=== PATIENT | female | born 1975 | race Caucasian/White ===

== ENCOUNTER → 2018-02-19 09:18 | Outpatient (CLI) | payer OTHER, SELFPAY ==
--- NOTE | 2018-02-19 | DI.MG.S_ITS ---
BILATERAL DIGITAL SCREENING MAMMOGRAM 3D/2D WITH CAD: 02/19/2018 CLINICAL: Routine screening. Family history of breast cancer. Comparison is made to exams dated: 02/06/2017 mammogram and 10/15/2014 mammogram - [facility]. The tissue of both breasts is heterogeneously dense. This may lower the sensitivity of mammography. Current study was also evaluated with a Computer Aided Detection (CAD) system. No significant masses, calcifications, or other findings are seen in either breast. There has been no significant interval change. IMPRESSION: NEGATIVE There is no mammographic evidence of malignancy. A 1 year screening mammogram is recommended. This exam was interpreted at Station ID: [id number]. NOTE: For mammograms, a report in lay terms will be sent to the patient. Approximately 15% of breast malignancies will not be visualized mammographically. In the management of a palpable breast mass, a negative mammogram must not discourage biopsy of a clinically suspicious lesion. Electronically Signed By: Itz wilson/teresita:02/19/2018 11:10:25 letter sent: Normal Exam ACR BI-RADS Category 1: Negative 3341F
== END ==
PROVIDERS: PCP Family Medicine; Visit Provider Family Medicine
DX: Z12.31 Encounter for screening mammogram for malignant neoplasm of breast (principal); Z80.3 Family history of malignant neoplasm of breast
CPT/HCPCS: 77063; 77067

== ENCOUNTER → 2019-03-17 16:16 | Outpatient (CLI) | payer OTHER, SELFPAY ==
--- NOTE | 2019-03-17 | DI.MG.S_ITS ---
BILATERAL DIGITAL SCREENING MAMMOGRAM 3D/2D WITH CAD: 03/17/2019 CLINICAL: Routine screening. Family history of breast cancer. Comparison is made to exams dated: 02/19/2018 mammogram, 02/06/2017 mammogram, and 10/15/2014 mammogram - [facility]. The tissue of both breasts is heterogeneously dense. This may lower the sensitivity of mammography. Current study was also evaluated with a Computer Aided Detection (CAD) system. No significant masses, calcifications, or other findings are seen in either breast. There has been no significant interval change. IMPRESSION: NEGATIVE There is no mammographic evidence of malignancy. A 1 year screening mammogram is recommended. This exam was interpreted at Station ID: [id number]. NOTE: For mammograms, a report in lay terms will be sent to the patient. Approximately 15% of breast malignancies will not be visualized mammographically. In the management of a palpable breast mass, a negative mammogram must not discourage biopsy of a clinically suspicious lesion. Electronically Signed By: Denise ortiz/teresita:03/17/2019 16:56:19 letter sent: Normal Exam ACR BI-RADS Category 1: Negative 3341F
== END ==
PROVIDERS: PCP Family Medicine; Visit Provider Family Medicine
DX: Z12.31 Encounter for screening mammogram for malignant neoplasm of breast (principal); Z80.3 Family history of malignant neoplasm of breast
CPT/HCPCS: 77063; 77067

== ENCOUNTER → 2020-04-27 16:55 | Outpatient (CLI) | payer OTHER, SELFPAY ==
--- NOTE | 2020-04-27 | DI.MG.S_ITS ---
BILATERAL DIGITAL SCREENING MAMMOGRAM 3D/2D WITH CAD: 04/27/2020 CLINICAL: Routine screening. Family history of breast cancer. Comparison is made to exams dated: 03/17/2019 mammogram, 02/19/2018 mammogram, and 02/06/2017 mammogram - [facility]. The tissue of both breasts is heterogeneously dense. This may lower the sensitivity of mammography. Current study was also evaluated with a Computer Aided Detection (CAD) system. No significant masses, calcifications, or other findings are seen in either breast. There has been no significant interval change. IMPRESSION: NEGATIVE There is no mammographic evidence of malignancy. A 1 year screening mammogram is recommended. This exam was interpreted at Station ID: [id number]. NOTE: For mammograms, a report in lay terms will be sent to the patient. Approximately 15% of breast malignancies will not be visualized mammographically. In the management of a palpable breast mass, a negative mammogram must not discourage biopsy of a clinically suspicious lesion. Electronically Signed By: Dustin natarajan/teresita:04/28/2020 08:45:16 letter sent: Normal Exam ACR BI-RADS Category 1: Negative 3341F
== END ==
PROVIDERS: PCP Family Medicine; Referring Provider Family Medicine; Visit Provider Family Medicine
DX: Z12.31 Encounter for screening mammogram for malignant neoplasm of breast (principal); Z80.3 Family history of malignant neoplasm of breast
CPT/HCPCS: 77063; 77067

== ENCOUNTER → 2021-03-31 15:02 | Outpatient (CLI) | payer OTHER, SELFPAY ==
[2021-03-31 15:25] LABS: Add Manual Diff / Slide Review NO; Basophils Absolute Auto 0 /uL (0-100); Basophils Percent Auto 0.9 % (0-2); Eosinophils Absolute Auto 100 /uL (0-450); Hemoglobin 10.9 g/dL (12.0-16.0); Lymphocytes Absolute Auto 1500 /uL (1100-4500); Lymphocytes Percent Auto 26.9 % (25-40); Mean Corpuscular HGB Conc 32.1 % (30-36); Monocytes Absolute Auto 400 /uL (0-900); Neutrophils Absolute Auto 3400 /uL (1500-7000); Neutrophils Percent Auto 62.2 % (50-75); Platelet Count 278 X10^3/uL (150-400); Red Cell Distribution Width 15.2 % (11.6-14.8); White Blood Cell Count 5.5 X10^3/uL (4.5-11.0)
[2021-03-31 15:42] LABS: Alanine Aminotransferase 12 IU/L (<35); Albumin 4.1 g/dL (3.5-5.0); Albumin Globulin Ratio 1.5 (1.0-2.8); Alkaline Phosphatase 38 U/L (38-126); Aspartate Aminotransferase 20 IU/L (14-36); BUN Creatinine Ratio 28.3 (6-22); Bilirubin Total 0.5 mg/dL (0.2-1.3); Blood Urea Nitrogen 17 mg/dL (7-17); Calcium 9.4 mg/dL (8.4-10.2); Carbon Dioxide 31 mmol/L (22-32); Chloride 104 mmol/L (98-107); Cholesterol 219 mg/dL (140-199); Estimated Glomerular Filt Rate > 60.0 mL/min (>60); Globulin 2.8 g/dL (1.7-4.1); Glucose 135 mg/dL (70-100); HDL Cholesterol 61 mg/dL (40-60); HEMOLYSIS < 15 (0-50); LDL Cholesterol Calculated 142 mg/dL (<100); Potassium 3.9 mmol/L (3.4-5.1); Sodium 139 mmol/L (137-145); Total Protein 6.9 g/dL (6.3-8.2); Triglycerides 79 mg/dL (35-150)
[2021-03-31 16:52] LABS: Urine N gonorrhoeae NOT DETECTED
[2021-03-31 16:54] LABS: Urine Chlamydia NOT DETECTED
[2021-04-01 05:26] LABS: HSV 2 IGG AB < 0.91 index (0.00-0.90); HSV1IGG < 0.91 index (0.00-0.90); RPR Screen Non Reactive (Non Reactive)
[2021-04-01 19:07] LABS: HSV I/II IgM <0.91 Ratio (0.00-0.90)
[2021-04-03 17:28] LABS: Hepatitis B Surface Antigen NEGATIVE s/c (NEGATIVE)
[2021-04-03 17:33] LABS: HIV 1 & 2 Ab/Ag 4th Gen Combo NEGATIVE (NEGATIVE); Hep C Virus Ab w/Reflex Quant NEGATIVE s/c (NEGATIVE)
== END ==
PROVIDERS: PCP Family Medicine; Referring Provider Registered Nurse; Visit Provider Registered Nurse
DX: Z20.2 Contact with and (suspected) exposure to infections with a predominantly sexual mode of transmission (principal); E78.5 Hyperlipidemia, unspecified; Z86.2 Personal history of diseases of the blood and blood-forming organs and certain disorders involving the immune mechanism
CPT/HCPCS: 36415; 80053; 80061; 85025; 86592; 86694; 86695; 86696; 86803; 87340; 87389; 87491; 87591

== ENCOUNTER → 2021-09-30 09:51 | Outpatient (CLI) | payer OTHER, SELFPAY ==
[2021-09-30 10:24] LABS: Hematocrit 39.1 % (36-46); Hemoglobin 13.3 g/dL (12.0-16.0)
[2021-09-30 10:44] LABS: Glucose 97 mg/dL (70-100)
== END ==
PROVIDERS: PCP Family Medicine; Referring Provider Family Medicine; Visit Provider Family Medicine
DX: Z86.2 Personal history of diseases of the blood and blood-forming organs and certain disorders involving the immune mechanism (principal); R73.9 Hyperglycemia, unspecified
CPT/HCPCS: 36415; 82947; 85014; 85018

== ENCOUNTER → 2022-11-17 09:54 | Outpatient (CLI) | payer OTHER, SELFPAY ==
[2022-11-17 10:54] LABS: Add Manual Diff / Slide Review NO; Basophils Absolute Auto 0 /uL (0-100); Basophils Percent Auto 1.1 % (0-2); Eosinophils Absolute Auto 100 /uL (0-450); Eosinophils Percent Auto 2.7 % (2-4); Hematocrit 39.6 % (36-46); Hemoglobin 12.8 g/dL (12.0-16.0); Lymphocytes Absolute Auto 1300 /uL (1100-4500); Lymphocytes Percent Auto 31.9 % (25-40); Mean Corpuscular HGB Conc 32.3 % (30-36); Mean Corpuscular Hemoglobin 27.7 PG (26-34); Mean Corpuscular Volume 85.9 fL (80-100); Monocytes Absolute Auto 400 /uL (0-900); Monocytes Percent Auto 8.8 % (3-14); Neutrophils Absolute Auto 2200 /uL (1500-7000); Neutrophils Percent Auto 55.5 % (50-75); Platelet Count 278 X10^3/uL (150-400); Red Blood Cell Count 4.61 X10^6/uL (4.0-5.2); Red Cell Distribution Width 14.4 % (11.6-14.8)
[2022-11-17 11:41] LABS: Iron 85 ug/dL (37-170)
[2022-11-17 12:19] LABS: Alanine Aminotransferase 14 IU/L (<35); Albumin 3.4 g/dL (3.5-5.0); Albumin Globulin Ratio 1.6 (1.0-2.8); Alkaline Phosphatase 33 U/L (38-126); Aspartate Aminotransferase 17 IU/L (14-36); BUN Creatinine Ratio 25.4 (6-22); Bilirubin Total 1.1 mg/dL (0.2-1.3); Blood Urea Nitrogen 18 mg/dL (7-17); Calcium 8.4 mg/dL (8.4-10.2); Carbon Dioxide 30 mmol/L (22-32); Chloride 101 mmol/L (98-107); Cholesterol 174 mg/dL (140-199); Estimated Glomerular Filt Rate > 60 mL/min (>60); Globulin 2.1 g/dL (1.7-4.1); Glucose 97 mg/dL (70-100); HDL Cholesterol 48 mg/dL (40-60); HEMOLYSIS < 15 (0-50); LDL Cholesterol Calculated 100 mg/dL (<100); Potassium 4.2 mmol/L (3.4-5.1); Sodium 135 mmol/L (137-145); Total Protein 5.5 g/dL (6.3-8.2); Triglycerides 128 mg/dL (35-150)
[2022-11-17 12:20] LABS: Thyroid Stimulating Hormone 1.13 uIU/mL (0.47-4.68)
[2022-11-17 12:32] LABS: Vitamin D 25 Hydroxy (D3) 18.1 ng/mL (30.0-100.0)
[2022-11-17 12:51] LABS: Ferritin 7 ng/mL (6-137)
== END ==
LOC: LAB 09:55
PROVIDERS: PCP Family Medicine; Referring Provider Family Medicine; Visit Provider Family Medicine
DX: D64.9 Anemia, unspecified (principal); E03.9 Hypothyroidism, unspecified; E78.2 Mixed hyperlipidemia; N93.9 Abnormal uterine and vaginal bleeding, unspecified; R79.89 Other specified abnormal findings of blood chemistry
CPT/HCPCS: 36415; 80053; 80061; 82306; 82728; 83540; 84443; 85025

== ENCOUNTER → 2024-02-21 07:55 | Outpatient (CLI) | payer OTHER, SELFPAY ==
--- NOTE | 2024-02-21 07:56 | DI.MG.S_ITS ---
BILATERAL DIGITAL SCREENING MAMMOGRAM 3D/2D WITH CAD: 02/21/2024 CLINICAL: Routine screening. Family history of breast cancer. Comparison is made to exams dated: 03/17/2019 mammogram, 04/27/2020 mammogram, and 02/19/2018 mammogram - [facility]. Both breasts are heterogeneously dense, which may obscure small masses (category c / 51-75% glandular tissue). Current study was also evaluated with a Computer Aided Detection (CAD) system. No significant masses, calcifications, or other findings are seen in either breast. There has been no significant interval change. IMPRESSION: NEGATIVE There is no mammographic evidence of malignancy. A 1 year screening mammogram is recommended. Based on the Tyrer Cuzick model (a risk assessment model) the patient's lifetime risk is 16.9% and her 10 year risk is 3.5%. According to the ACR, ACS, and NCCN guidelines, an annual breast MRI exam along with mammogram is recommended if the patient's lifetime risk is 20% or greater. This exam was interpreted at Station ID: [id number]. NOTE: For mammograms, a report in lay terms will be sent to the patient. Approximately 15% of breast malignancies will not be visualized mammographically. In the management of a palpable breast mass, a negative mammogram must not discourage biopsy of a clinically suspicious lesion. Electronically Signed By: Marvin saavedra/teresita:02/21/2024 10:55:32 letter sent: Normal Exam ACR BI-RADS Category 1: Negative 3341F
== END ==
LOC: MAMMO 07:55
PROVIDERS: PCP Family Medicine; Referring Provider Family Medicine; Visit Provider Family Medicine
DX: Z12.31 Encounter for screening mammogram for malignant neoplasm of breast (principal); Z80.3 Family history of malignant neoplasm of breast; R92.333 Mammographic heterogeneous density, bilateral breasts
CPT/HCPCS: 77063; 77067

== ENCOUNTER 2024-05-28 06:48 | Day surgery (SDC) | payer BC, SELFPAY ==
[2024-05-28] MEDS: LACTATED RINGERS 1,000 ML 84 ML IV (07:19)
[2024-05-28 07:36] VITALS: BP 135/80; PULSE 65; RESP 16; TEMP 36.1; O2SAT 97
--- NOTE | 2024-05-28 07:44 | P.HP_ITS ---
History of Present Illness History of Present Illness Date Patient Seen: 05/28/24 Time Patient Seen: 07:44 Chief complaint: Screening Colonoscopy Narrative: Mary Lou is a 48-year-old woman who is here for a screening colonoscopy her first. No family history of colon cancer. No rectal bleeding or melena. Occasional constipation. [facility]LY [facility] Medical History (Updated 05/28/24 @ 07:44 by Hussein Liz MD) Wears glasses Overweight Acne Migraines Headache Chicken pox Painful menstrual periods (~1991) History of iron deficiency anemia Menorrhagia Hyperlipidemia Surgical History (Updated 09/05/23 @ 18:05 by Ena Parker) Anesthesia Status post discectomy (05/17/16) Status post tubal ligation Status post delivery (01/07/07) Status post delivery (12/14/04) Family History (Updated 09/05/23 @ 18:09 by Ena Parker) Brother Age: 44 Allergic rhinitis Father Age: 71 Hyperlipidemia Hypertension Polyp, colonic Grandmother Breast cancer Mother Age: 71 Hyperlipidemia History of cholecystectomy H/O shoulder replacement Allergic rhinitis Hypertension Alcohol abuse Grandfather Cancer Social History Smoking Status: Former smoker Tobacco: How many years used: 1 (social) alcohol intake: current Meds Home Medications and Allergies Home Medications Medication Instructions Recorded Confirmed Type ibuprofen 200 mg capsule 200 mg PO Q6HP PRN ##0 09/06/23 04/03/24 History [place]'s wort PO 04/03/24 04/03/24 History sodium,potassium,mag sulfates 17.5 See Rx Instructions PO .COMPLEX 04/22/24 Rx gram-3.13 gram-1.6 gram oral soln #354 mL (Suprep Bowel Prep Kit) Allergies Allergy/AdvReac Type Severity Reaction Status Date / Time pyrilamine [PYRILAMINE] AdvReac Intermediate agitation Verified 05/28/24 07:41 Exam Vital Signs (past 8 hours): - 05/28/24 07:36 Temperature 97 F L Pulse Rate 65 Respiratory Rate 16 Blood Pressure 135/80 Pulse Oximetry 97 Oxygen Delivery Method Room Air Oxygen Delivery Method Room Air Const General: healthy appearing Assessment & Plan Assessment and plan (1) Colon cancer screening: Status: Acute Plan We reviewed the risks and benefits of colonoscopy for colon cancer screening and she would like to proceed. Time-Based Coding :: [TOTAL MINUTES] spent with patient and on the chart (including review of chart, obtaining history, exam, reviewing outside data, placing orders, documenting exam and treatment plan, and counseling patient) on [DATE].
[2024-05-28 08:07] VITALS: BP 130/83; PULSE 73; RESP 12; TEMP 36.3; O2SAT 96
--- NOTE | 2024-05-28 08:08 | PM.OP.COLON ---
Operative Date/Time/Diagnoses Date of procedure: 05/28/24 Time of procedure: 08:08 Pre-op diagnosis: Colon cancer screening Post-op diagnosis: same Procedure & Clinicians Study performed: Colonoscopy Same procedure as scheduled: Yes Surgeon: Hussein Liz Procedure Notes Procedure in detail: Surgeon: Hussein Liz MD Anesthesia: Lucia Syed CRNA Procedure: The patient was brought to the endoscopy suite, placed in left lateral decubitus position. The patient was connected to monitoring devices. A time-out was performed. Sedation was administered. Once the patient was adequately sedated, a digital rectal exam was performed and was normal. The scope was then inserted and advanced to the cecum where the appendiceal orifice was identified and photographed. The scope was then slowly withdrawn over greater than 6 minutes. The mucosa was thoroughly inspected. No abnormalities were identified. The scope was retroflexed in the rectum. No other abnormalities were seen. The scope was straightened and removed. The patient was awakened and brought to recovery. Scope withdrawal time: 8 minutes Sedation time: 14 minutes EBL: 0 Findings: Normal colon Post-procedure Recommendations: Colonoscopy in 10 years Disposition: PACU
[2024-05-28 08:13] VITALS: BP 127/83; PULSE 69; RESP 14; O2SAT 98
[2024-05-28 08:18] VITALS: BP 144/94; PULSE 71; RESP 16; TEMP 36.3; O2SAT 99
== END 2024-05-28 08:26 | disposition home or self-care (01) ==
PROVIDERS: PCP Family Medicine; Referring Provider Surgery; Visit Provider Surgery
PROC: 0DJD8ZZ Inspection of Lower Intestinal Tract, Via Natural or Artificial Opening Endoscopic (ICD-10-PCS; CPT 45378; principal; 2024-05-28 07:45)
DX: Z12.11 Encounter for screening for malignant neoplasm of colon (principal)
CPT/HCPCS: 45378; J2704

== ENCOUNTER → 2025-03-06 09:09 | Outpatient (CLI) | payer BC, SELFPAY ==
--- NOTE | 2025-03-06 09:10 | DI.MG.S_ITS ---
MM screening mammo BI: 03/06/2025. BI-RADS: 1 CLINICAL: 49-year old female for bilateral screening mammogram. Tyrer-Cuzick lifetime risk of 9.3%. No personal or first-degree family history of breast cancer. Current reported family history of breast cancer: maternal grandmother. PRIOR EXAMS 02/21/2024, 04/27/2020, 03/17/2019, 02/19/2018, MAMMOGRAPHY TECHNIQUE: 2D and 3D (tomosynthesis) digital mammographic views obtained, with additional images as needed for full coverage. Current study was also evaluated with a Computer Aided Detection (CAD) system. DENSITY C. The breasts are heterogeneously dense, which may obscure small masses. MAMMOGRAPHY FINDINGS Bilateral: No suspicious mass, asymmetry, microcalcification, or other abnormality seen. IMPRESSION: * No evidence of malignancy. RECOMMENDATIONS Bilateral * Annual screening mammography. OVERALL ASSESSMENT CATEGORY BI-RADS-1: Negative. The [employer] recommends annual screening mammography beginning at age 40 for women with average risk of breast cancer. ELECTRONICALLY SIGNED: Dustin Emery M.D. on 03/08/2025 at 07:26:03 AM PT Interpreting Station ID: [id number]
== END ==
PROVIDERS: PCP Family Medicine; Referring Provider Family Medicine; Visit Provider Family Medicine
DX: Z12.31 Encounter for screening mammogram for malignant neoplasm of breast (principal); Z80.3 Family history of malignant neoplasm of breast; R92.333 Mammographic heterogeneous density, bilateral breasts
CPT/HCPCS: 77063; 77067